=== PATIENT | female | born 1985 | race Caucasian/White ===

== ENCOUNTER 2018-08-25 21:36 | Emergency (ER) | payer MEDICAID ==
[~2018-08-25] VITALS: Ht 160 cm; Wt 109.0 kg
[2018-08-25] MEDS ORDERED: IBUPROFEN 600MG TABLET PO ONE (23:00)
[2018-08-26 00:23] VITALS: BP 113/79
== END 2018-08-26 00:52 | disposition home or self-care (01) ==
LOC: ER 21:36
DX: S02.2XXA Fracture of nasal bones, initial encounter for closed fracture (principal); W22.8XXA Striking against or struck by other objects, initial encounter; Y93.89 Activity, other specified; Y92.89 Other specified places as the place of occurrence of the external cause; R03.0 Elevated blood-pressure reading, without diagnosis of hypertension
CPT/HCPCS: 70160; 81025; 99283